=== PATIENT | female | born 1990 | race African-American/Black ===

== ENCOUNTER 2019-04-14 12:57 | Emergency (ER) | payer MEDICAID, OTHER ==
[~2019-04-14] VITALS: Ht 167.6 cm; Wt 54.4 kg
[2019-04-14] MEDS ORDERED: IV NORMAL SALINE 1000 ML BAG IV ONE (14:15)
[2019-04-14] MEDS ORDERED: ONDANSETRON 4 MG/2 ML VIAL IV ONE (14:15)
[2019-04-14] MEDS ORDERED: LORAZEPAM 2 MG/1 ML VIAL IV ONE (14:15)
[2019-04-14 14:23] LABS: BASOPHILS # (AUTO) 0.1 K/uL (0.0-8.0); BASOPHILS % (AUTO) 1.2 % (0.0-2.0); EOSINOPHILS % (AUTO) 0.2 % (0.0-7.0); HEMATOCRIT 38.3 % (31.2-41.9); HEMOGLOBIN 12.8 g/dL (10.9-14.3); LYMPHOCYTES % (AUTO) 25.1 % (20.5-51.5); MEAN CORPUSCULAR HEMOGLOBIN 28.3 uug (24.7-32.8); MEAN CORPUSCULAR HGB CONC 34 g/dL (32.3-35.6); MEAN CORPUSCULAR VOLUME 84.6 fL (75.5-95.3); MONOCYTES # (AUTO) 0.6 K/uL (2.0-10.0); NEUTROPHILS # (AUTO) 5.3 K/uL (1.8-8.9); NEUTROPHILS % (AUTO) 66.5 % (38.5-71.5); PLATELET COUNT (AUTO) 259 K/uL (179-408); RED BLOOD CELL COUNT(AUTO) 4.52 MIL/uL (3.63-4.92)
[2019-04-14 14:34] LABS: CARBON DIOXIDE 24 mmol/L (21-32); CHLORIDE 105 mmol/L (98-107); CREATININE 0.5 mg/dL (0.6-1.3); GLUCOSE 79 mg/dL (74-106); POTASSIUM 3.1 mmol/L (3.5-5.1); UREA NITROGEN, BLOOD 6 mg/dL (7-18)
[2019-04-14] MEDS ORDERED: ONDANSETRON 4 MG/2 ML VIAL ONE (14:34)
[2019-04-14] MEDS ORDERED: LORAZEPAM 2 MG/1 ML VIAL ONE (14:35)
[2019-04-14] MEDS ORDERED: HYDROCODONE/APAP 10-325 MG TABLET PO ONE (15:00)
[2019-04-14] MEDS ORDERED: HYDROCODONE/APAP 10-325 MG TABLET ONE (15:07)
--- NOTE | 2019-04-14 15:11 | NUR ---
Patient is resting comfortably in bed with eyes closed, NAD noted.
--- NOTE | 2019-04-14 16:26 | NUR ---
IV removed. Catheter intact and site benign. Pressure and 4x4 gauze applied to site. No bleeding noted.
[2019-04-14 16:28] VITALS: BP 120/78
--- NOTE | 2019-04-14 16:29 | NUR ---
Patient discharged to home in stable conditon. Written and verbal after care instructions given. Patient verbalizes understanding of instructions.
== END 2019-04-14 16:29 | disposition home or self-care (01) ==
LOC: ER 12:57
DX: O20.8 Other hemorrhage in early pregnancy (principal); R10.2 Pelvic and perineal pain; J45.909 Unspecified asthma, uncomplicated; Z88.0 Allergy status to penicillin; Z3A.01 Less than 8 weeks gestation of pregnancy
CPT/HCPCS: 36415; 71045; 76856; 80048; 85025; 85730; 93005; 96374; 96375; 99284; J2060; J2405; A4663; J7030